=== PATIENT | male | born 1970 | race Two or more races ===

== ENCOUNTER 2019-07-27 12:22 | Emergency (ER) | payer SELFPAY ==
[2019-07-27 12:41] VITALS: TEMP 98.1; BMI 27.3
--- NOTE | 2019-07-27 13:39 | PDOC ---
History of Present Illness - General Chief Complaint: Pain Stated Complaint: LIVER PAIN Time Seen by Provider: 07/27/19 13:18 - History of Present Illness Initial Comments: Mr. Castañeda is a 49 y/o male with PMH of HTN, stroke, Hep C with residual deficits, presenting today with LUQ abdominal pain that has been going on for the past year. He recently moved from [place] to the [facility] permanently 3 weeks ago. Had a PCP and liver specialist in [place]. Had US of abdomen done in [place], but does not have results. Reports that he has had jaundice and pruritus over the past year. Reports nausea but denies vomiting. Reports that the pain is left sided and radiates around the side, and worsens with eating. Denies fever, chills, cough. Denies diarrhea/constipation/blood in the stool. Denies chest pain, or shortness of breath. Reports occasional lightheadedness. History limited 2/2 language barrier and unavailability of medical records. Past History - Past Medical History Allergies/Adverse Reactions: Allergies Allergy/AdvReac Type Severity Reaction Status Date / Time No Known Allergies Allergy Verified 07/27/19 12:41 - Suicide/Smoking/Psychosocial Hx Smoking History: Never smoked Hx Alcohol Use: No Drug/Substance Use Hx: No Review of Systems - Review of Systems Comments:: ROS GENERAL/CONSTITUTIONAL: No fever or chills. No weakness._ HEAD, EYES, EARS, NOSE AND THROAT: No change in vision. No change in hearing. No sore throat._ CARDIOVASCULAR: No chest pain or shortness of breath_ RESPIRATORY: Denies cough, hemoptysis_ GASTROINTESTINAL: Reports nausea. Denies vomiting, diarrhea or constipation. Reports left sided abdominal pain. GENITOURINARY: No dysuria, frequency, or change in urination._ MUSCULOSKELETAL: No joint or muscle swelling or pain. No neck or back pain._ SKIN: No rash. NEUROLOGIC: No headache, vertigo, loss of consciousness, or change in strength/ sensation. Reports lightheadedness. ENDOCRINE: No increased thirst. No abnormal weight change_ HEMATOLOGIC/LYMPHATIC: No anemia, easy bleeding, or history of blood clots._ ALLERGIC/IMMUNOLOGIC: No hives. *Physical Exam - Vital Signs Last Vital Signs Temp Pulse Resp BP Pulse Ox 98.1 F 83 19 137/80 99 07/27/19 12:36 07/27/19 12:36 07/27/19 12:36 07/27/19 12:36 07/27/19 12:36 - Physical Exam Comments: GENERAL: Awake, alert, and oriented to person/place/time, in no acute distress. HEAD: No signs of trauma, normocephalic, atraumatic _ EYES: PERRLA, EOMI, sclera anicteric, conjunctiva clear. ENT: Hearing grossly normal, nares patent, oropharynx clear without exudates. No uvular deviation. Moist mucosa_ NECK: Normal ROM, supple, no lymphadenopathy, JVD, or masses_ LUNGS: No distress, speaks in full sentences, clear to auscultation bilaterally _ HEART: Regular rate and rhythm, normal S1 and S2, no murmurs appreciated, peripheral pulses normal and equal bilaterally._ ABDOMEN: Soft, tenderness to palpation LUQ and LLQ. No guarding, no rebound. No masses. EXTREMITIES: Normal inspection, Normal range of motion, no edema. No clubbing or cyanosis. NEUROLOGICAL: Cranial nerves II through XII grossly intact. Normal speech, normal gait, no focal sensorimotor deficits _ SKIN: Warm, Dry, normal turgor, no rashes or lesions noted. ED Treatment Course - LABORATORY CBC & Chemistry Diagram: 07/27/19 14:42 07/27/19 14:42 Medical Decision Making - Medical Decision Making 07/27/19 13:45 49M with PMH Hep C and cirrhosis, presenting today with 1 year of LUQ LLQ abdominal pain over the past year. Reports weight loss over the past year. Worse with eating. No vomiting or blood in the stool. Obtain CT abd/pelv, CBC, CMP, coags, lipase. 07/27/19 1500 LFTs and coags elevated. This is c/w liver disease. 07/27/19 18:30 CT abdomen/pelvis shows non-obstructing renal stones, gallstones, and findings of cirrhotic liver. No liver masses appreciated. As there is no reason for admission, we will plan to d/c the patient home with close follow up with Dr. Barragan's clinic for primary care. Discussed this with the patient who verbalized understanding and agreement. *DC/Admit/Observation/Transfer Diagnosis at time of Disposition: Abdominal pain Qualifiers: Abdominal location: left upper quadrant Qualified Code(s): R10.12 - Left upper quadrant pain - Discharge Dispostion Disposition: HOME Condition at time of disposition: Stable Decision to Admit order: No - Referrals - Patient Instructions Printed Discharge Instructions: DI for Cirrhosis Additional Instructions: Please make an appointment with Dr. Barragan's office to establish care with a primary care physician. If you experience any new, worsening, or concerning symptoms, including fever, severe abdominal pain, blood in the vomit or stool, chest pain, shortness of breath, or any other concerns, please return to the emergency department. - Post Discharge Activity
[2019-07-27] MEDS ORDERED: SODIUM CHLORIDE 0.9% 500 ML INFUS.BAG IV ONE (13:50)
--- NOTE | 2019-07-27 15:06 | PDOC ---
Documentation entered by Isma Mahajan SCRIBE, acting as scribe for Liliya Hernandez MD. Liliya Hernandez MD: This documentation has been prepared by the Keyshawn gonzalez Xhesika, SCRIBE, under my direction and personally reviewed by me in its entirety. I confirm that the documentation accurately reflects all work, treatment, procedures, and medical decision making performed by me. Attending Attestation - Resident Resident Name: MacarioAguilar - ED Attending Attestation I have performed the following: I have examined & evaluated the patient, The case was reviewed & discussed with the resident, I agree w/resident's findings & plan, Exceptions are as noted - HPI HPI: 07/27/19 15:04 The patient is a 49 year old male with a significant PMH of HTN, Stroke, and Hep C with residual deficits who presents to the emergency department with worsening L upper and lower abdominal pain. Patient is a poor historian due to language barrier. Patient notes he moved from [place] 3 weeks ago and does not have a PCP. Patient states his pain radiates around his L side, is associated with decreased PO, nausea and is worsened with eating. Patient states he has lost 30 pounds over the past couple of months and has been jaundice. Patient notes he had a US in [place] that was abnormal but does not know the results. The patient denies chest pain, shortness of breath, headache and dizziness. Denies fever, chills, cough, vomiting, diarrhea and constipation. Denies dysuria , frequency, urgency and hematuria. Allergies: NKDA - Physicial Exam PE: GENERAL: Awake, alert, and fully oriented, in no acute distress. Appears chronically ill. HEAD: No signs of trauma EYES: PERRLA, EOMI, conjunctiva clear. +Scleral icterus ENT: Auricles normal inspection, hearing grossly normal, nares patent, oropharynx clear without exudates. Moist mucosa NECK: Normal ROM, supple, no lymphadenopathy, JVD, or masses LUNGS: Breath sounds equal, clear to auscultation bilaterally. No wheezes, and no crackles HEART: Regular rate and rhythm, normal S1 and S2, no murmurs, rubs or gallops ABDOMEN: Soft, nontender, normoactive bowel sounds. No guarding, no rebound. No masses EXTREMITIES: Normal range of motion, no edema. No clubbing or cyanosis. No cords, erythema, or tenderness NEUROLOGICAL: Cranial nerves II through XII grossly intact. Normal speech, normal gait. Motor and sensation intact SKIN: Warm, dry, normal turgor, no rashes or lesions noted. +Jaundice - Medical Decision Making 07/27/19 15:02 Pt with history of HCV, now with significant weight loss, nausea, poor PO intake , jaundice. Unknown imaging results from [place], but they were reportedly abnormal. Will obtain labs and plan for CT a/p to r/o liver mass.
[2019-07-27 15:20] LABS: BASO % 0.6 % (0-2.0); EOS % 2.3 % (0-4.5); HEMATOCRIT 36.2 % (35.4-49); HEMOGLOBIN 12.5 GM/dL (11.7-16.9); LYMPH % 42.3 % (8-40); MCH 36.3 pg (25.7-33.7); MCHC 34.7 g/dl (32.0-35.9); MEAN CELL VOLUME 104.8 fl (80-96); MEAN PLT VOLUME 9.6 fl (7.5-11.1); MONO % 10.4 % (3.8-10.2); NEUT % 44.4 % (42.8-82.8); PLATELET COUNT 78 K/MM3 (134-434); RBC 3.45 M/mm3 (4.00-5.60); RDW 13.9 % (11.9-15.9); WHITE BLOOD COUNT 6.5 K/mm3 (4.0-10.0)
[2019-07-27 15:36] LABS: INR 1.18 (0.83-1.09); PROTHROMBIN TIME (PATIENT) 13.9 SEC (9.7-13.0)
[2019-07-27 15:37] LABS: ALBUMIN 3.2 g/dl (3.4-5.0); BILIRUBIN,TOTAL 3.2 mg/dL (0.2-1); CALCIUM 8.8 mg/dL (8.5-10.1); CREATININE 0.8 mg/dL (0.55-1.3); POTASSIUM 3.5 mmol/L (3.5-5.1)
[2019-07-27 15:39] LABS: ACTIVATED PTT 34.7 SECONDS (25.2-36.5)
[2019-07-27 19:09] VITALS: BP 99/51; PULSE 87
== END 2019-07-27 19:08 | disposition home or self-care (01) ==
LOC: JER 12:22 → EDBD 12:22 → JER 19:08
PROC: 3E0337Z Introduction of Electrolytic and Water Balance Substance into Peripheral Vein, Percutaneous Approach (ICD-10-PCS; principal; 2019-07-27)
DX: R10.12 Left upper quadrant pain (principal); R63.4 Abnormal weight loss; Z68.27 Body mass index [BMI] 27.0-27.9, adult; I10 Essential (primary) hypertension; B18.2 Chronic viral hepatitis C; Z86.73 Personal history of transient ischemic attack (TIA), and cerebral infarction without residual deficits
CPT/HCPCS: 36415; 74177-TC; 80053; 80074; 83690; 85025; 85610; 85730; 99283-25

== ENCOUNTER 2019-08-11 14:59 | Inpatient (IN) | payer OTHER ==
--- NOTE | 2019-08-11 15:07 | PDOC ---
Rapid Medical Evaluation Time Seen by Provider: 08/11/19 15:04 Medical Evaluation: Allergies Allergy/AdvReac Type Severity Reaction Status Date / Time No Known Allergies Allergy Verified 07/27/19 12:41 08/11/19 15:05 I have performed a brief in-person evaluation of this patient. The patient presents with a chief complaint of: sent from [facility] office for eval of elevated lft, hep c, hx cirrhosis, + gen abd pain Pertinent physical exam findings: hr 133, a febrile, no abd distention I have ordered the following: labs, urine The patient will proceed to the ED for further evaluation. 08/11/19 15:08 Discharge Disposition - Diagnosis Cirrhosis, Elevated LFTs Abdominal pain Qualifiers: Abdominal location: right lower quadrant Qualified Code(s): R10.31 - Right lower quadrant pain - Discharge Dispostion Condition at time of disposition: Stable - Referrals - Patient Instructions - Post Discharge Activity
--- NOTE | 2019-08-11 15:17 | PDOC ---
History of Present Illness - General Chief Complaint: Pain, Acute Stated Complaint: SENT BY PCP Time Seen by Provider: 08/11/19 15:04 History Source: Patient Exam Limitations: No Limitations - History of Present Illness Initial Comments: 08/11/19 16:01 Reagan Donald is a 49yM w PMHx hep C cirrhosis, cholelithiasis, and gallstones presenting w abdominal pain and elevated liver labs. He endorses constant epigastric, RUQ and RLQ pain for 1 year. Seen in [facility] ED 07/27, labs and imaging show hepatic cirrhosis, cholelithiasis, and nonobstructing renal calculus. Vomited several times 3 days ago, currently not nauseous. Also has intermittent jaundice and pruritis. Denies fever, headache, chest pain, urinary , bowel mvmt changes. Saw Dr. Lena Sloan primary care clinic for first time today, noted to have elevated bilirubin levels, referred to ED to be admitted. Past History - Past Medical History Allergies/Adverse Reactions: Allergies Allergy/AdvReac Type Severity Reaction Status Date / Time No Known Allergies Allergy Verified 08/11/19 15:07 Home Medications: Ambulatory Orders NK [No Known Home Medication] 08/11/19 CVA: Yes COPD: No HTN: Yes Liver Disease: Yes (HEP C) - Suicide/Smoking/Psychosocial Hx Smoking History: Never smoked Hx Alcohol Use: Yes (OCCASIONALLY) Drug/Substance Use Hx: No Review of Systems - Review of Systems Constitutional: No: Chills, Fever HEENTM: No: Eye Pain, Nose Pain, Throat Pain, Mouth Pain Respiratory: No: Cough, Shortness of Breath Cardiac (ROS): No: Chest Pain, Palpitations, Syncope, Chest Tightness ABD/GI: Yes: Nausea, Vomiting. No: Abdominal Distended, Constipated, Diarrhea : No: Burning, Dysuria, Discharge, Hematuria, Incontinence Musculoskeletal: No: Back Pain, Joint Pain, Muscle Pain, Muscle Weakness Integumentary: Yes: Change in Color (jaundice), Pruritus. No: Bruising, Flushing, Lesions, Lumps Neurological: No: Headache, Numbness, Seizure, Tingling, Tremors Psychiatric: No: Anxiety, Depression Endocrine: No: Excessive Sweating, Flushing, Intolerance to Cold, Intolerance to Heat Hematologic/Lymphatic: No: Anemia, Blood Clots, Easy Bleeding *Physical Exam - Vital Signs Last Vital Signs Temp Pulse Resp BP Pulse Ox 98.8 F 112 H 16 111/81 98 08/11/19 15:02 08/11/19 15:02 08/11/19 15:02 08/11/19 15:02 08/11/19 15:02 - Physical Exam General Appearance: Yes: Nourished, Appropriately Dressed. No: Apparent Distress HEENT: positive: EOMI, ESTEVAN, Normal Voice, Hearing Grossly Normal. negative: Scleral Icterus (R), Scleral Icterus (L), Nasal Congestion, Rhinorrhea Respiratory/Chest: positive: Lungs Clear, Normal Breath Sounds. negative: Chest Tender, Respiratory Distress, Crackles, Rales, Rhonchi, Stridor, Wheezing Cardiovascular: positive: Regular Rhythm, Regular Rate, S1, S2. negative: Edema , Murmur Gastrointestinal/Abdominal: positive: Normal Bowel Sounds, Tender (mild tenderness epigastric, RUQ, R inguinal region), Flat, Soft. negative: Organomegaly, Distended, Guarding, Rebound, Hernia, Mass Musculoskeletal: positive: Normal Inspection Extremity: positive: Normal Capillary Refill Integumentary: positive: Normal Color Neurologic: positive: Fully Oriented, Alert, Normal Mood/Affect, Normal Response , Responsive. negative: Sensory Deficit, Confused, Disoriented ED Treatment Course - LABORATORY CBC & Chemistry Diagram: 08/11/19 15:25 08/11/19 16:27 Medical Decision Making - Medical Decision Making 08/11/19 16:13 CBC CMP trop NH4 lipase UA CXR EKG 1L NS RUQ US showed cholelithiasis, hepatic cirrhosis without cholangitis elevated, unchanged bili 3.6, AST 120, ALT 80 UA shows 2+ bili, nitrate, blood, trace ketone w/o bacteria/WBC Reagan Donald is a 49yM w PMHx hep C cirrhosis, cholelithiasis, and gallstones presenting w abdominal pain and elevated liver labs. Pain likely due to cirrhosis seen on RUQ US, elevated LFTs. US also showed cholelithiasis without cholangitis. Not ACS w negative trop, negative trop. Given 1L NS Admit to hospitalist for cirrhosis, elevated LFTs, R sided abdominal pain, continued vomiting in setting of absent outpatient care. *DC/Admit/Observation/Transfer Diagnosis at time of Disposition: Elevated LFTs Abdominal pain Qualifiers: Abdominal location: right lower quadrant Qualified Code(s): R10.31 - Right lower quadrant pain Cirrhosis Qualifiers: Hepatic cirrhosis type: unspecified hepatic cirrhosis Ascites presence: without ascites Qualified Code(s): K74.60 - Unspecified cirrhosis of liver - Referrals - Patient Instructions - Post Discharge Activity
[2019-08-11] MEDS ORDERED: SODIUM CHLORIDE 0.9% 500 ML INFUS.BAG IV ONE (15:43)
[2019-08-11 15:52] LABS: INR 1.21 (0.83-1.09); PROTHROMBIN TIME (PATIENT) 14.3 SEC (9.7-13.0)
[2019-08-11 16:14] LABS: BASO % 0.7 % (0-2.0); EOS % 2.1 % (0-4.5); HEMATOCRIT 35.8 % (35.4-49); HEMOGLOBIN 12.1 GM/dL (11.7-16.9); LYMPH % 37.4 % (8-40); MCH 35.9 pg (25.7-33.7); MCHC 33.7 g/dl (32.0-35.9); MEAN CELL VOLUME 106.6 fl (80-96); MEAN PLT VOLUME 10.4 fl (7.5-11.1); MONO % 15.2 % (3.8-10.2); NEUT % 44.6 % (42.8-82.8); PLATELET COUNT 90 K/MM3 (134-434); RBC 3.36 M/mm3 (4.00-5.60); RDW 13.8 % (11.9-15.9); WHITE BLOOD COUNT 6.8 K/mm3 (4.0-10.0)
--- NOTE | 2019-08-11 16:24 | PDOC ---
Attending Attestation - Resident Resident Name: Emmanuel Barrientos - ED Attending Attestation I have performed the following: I have examined & evaluated the patient, The case was reviewed & discussed with the resident, I agree w/resident's findings & plan - HPI HPI: 08/11/19 16:19 49y/o F h/o cirrhosis, known gallstones lost to f/u locally presents from [facility] clinic with persistent sxs of intermittent abd pain, anorexia, vomiting. Pt seen in ED, elevated LFTs so referred to clinic but pt seen today with inability to tolerate PO and progressive decline, so sent to ED. no f/c, + wt loss. - Physicial Exam PE: 08/11/19 16:21 vss, afebrile, tachy at triage but 90 at rest on my exam + scleral icterus, op clear s1s2 rrr, ctab soft/nd. + strong's on exam, no rebound. no cvat. 2-3+ pitting edema b/l no bruising - Medical Decision Making 08/11/19 16:22 49y/o M known cirrhosis/gallstones with progressive decline in setting of subacute GI complaints, here with jaundice/dehydration with weight loss. ? progression of cirrhosis, r/o biliary colic/obstruction. labs, ua ruq u/s ekg admit
[2019-08-11 16:55] LABS: ALBUMIN 3.1 g/dl (3.4-5.0); ALK PHOS 124 U/L (45-117); ANION GAP 11 MMOL/L (8-16); BILIRUBIN,TOTAL 3.6 mg/dL (0.2-1); CALCIUM 8.9 mg/dL (8.5-10.1); CHLORIDE 107 mmol/L (98-107); CO2 25 mmol/L (21-32); CREATININE 0.8 mg/dL (0.55-1.3); GLUCOSE,RANDOM 90 mg/dL (74-106); LIPASE 268 U/L (73-393); MAGNESIUM 1.9 mg/dL (1.8-2.4); POTASSIUM 4.2 mmol/L (3.5-5.1); SGOT/AST 125 U/L (15-37); SGPT/ALT 88 U/L (13-61); SODIUM 143 mmol/L (136-145); TOT PROT 6.8 g/dl (6.4-8.2)
[2019-08-11 17:01] LABS: EPI CELLS 0.5 /HPF (0-5/HPF); HYALINE CASTS 1 /lpf (0-8); PH,URINE 5.5 (5.0-8.0); URINE APPEARANCE CLEAR; URINE BACTERIA 1.9 /hpf (NEGATIVE); URINE BILIRUBIN 2+ (NEGATIVE); URINE COLOR DK YELLOW; URINE GLUCOSE (UA) NEGATIVE (NEGATIVE); URINE KETONE TRACE (NEGATIVE); URINE LEUK ESTERASE TRACE (NEGATIVE); URINE NITRITE POSITIVE (NEGATIVE); URINE PROTEIN NEGATIVE (NEGATIVE); URINE RBC 5 /hpf (0-4); URINE WBC 1 /hpf (0-5)
[2019-08-11 17:10] LABS: ALBUMIN 3.1 g/dl (3.4-5.0); BILIRUBIN,TOTAL 3.6 mg/dL (0.2-1); BLOOD UREA NITROGEN 13.7 mg/dL (7-18); CREATININE 0.8 mg/dL (0.55-1.3); POTASSIUM 4.5 mmol/L (3.5-5.1); TOT PROT 6.8 g/dl (6.4-8.2)
[2019-08-11 19:18] LABS: ANISOCYTOSIS 1+; MACROCYTOSIS 2+; PLATELET ESTIMATE DECREASED
--- NOTE | 2019-08-12 02:19 | HP ---
CHIEF COMPLAINT: RUQ and RLQ abdominal pain for the past 2-3 months, with weight loss, pruritis, jaundice, and loss of appetite for the past 1 year PCP: PCP is in [place], [place] the [place] 3 [place] ago. 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 He presnted to the ER from home with complaints of RUQ and RLQ abdominal pain for the past 2-3 months, with weight loss, pruritis, jaundice, and loss of appetite for the past 1 year. He first noticed pruritis and yellow discoloration of his eyes and skin approximately a year ago, followed by a weight loss of 30 pounds in the last 4 months of 2018. He visited his doctor in [place] earlier this year, and states that he was told that is liver was not functioning properly. His symptoms gradually progressed until 2-3 months ago, when he developed RUQ and RLQ abdominal pain, sudden in onset, 5/10 in intensity, dull in quality, constant in nature, non-radiating, aggravated by bending down, and with no alleviating factors. The pain was associated with loose stools, but no change in the frequency of his bowel movements. It is also associated with dizziness, SOB (able to walk 10 minutes), paliptations, nausea, occasional vomiting (4 times over the past year, usually after eating), dysuria (intermittent over the past 2 years, not currently an issue), and urinary urgency. He visited his physician again, and was told that his liver was damaged. He was also found to have elevated blood pressure, and was prescribed Atenolol (dosage not listed on prescription form [place]), temazepam, Claritin (for the pruritis), and Citalopram. [place] then [place] the [place], and presented to the [facility] ER on 07/27, where a CT was done and he was asked to F/U outpatient. CT showed hepatic cirrhosis, cholelithiasis, and non-obstructing renal calculus. He visited Dr. Lena Sloan today, and was referred to the ER to be admitted. In addition to his previous symptoms, he states that he vomited once on Saturday, 10 minutes after eating. He was unable to notice the color because it was dark, but states that the vomitus was watery. ER course was notable for: (1) Hep C Ab POSITIVE, TBili 3.6, AST 128, ALT 89, Albumin 3.1 (2) US RUQ: Chlelithiasis, borderline GB thickening, no right hydronephrosis (3) CT AP (07/27): Cirrhosis, non obstructive 3mm L Renal calculus, cholelithiasis Recent Travel: Arrived from [place] 3 weeks ago PAST MEDICAL HISTORY: HTN, Cirrhosis PAST SURGICAL HISTORY: None Social History: Has not worked for the past 15 months due to symptoms. Lives with sister in law and . States he is sexually active only with is Smoking: denies Alcohol: Has been drinking fr 30 years, used to drink 4-5 beers a few times a week, now down to 2-3 beers. Only drinks beer Drugs: Denies IV drug abuse reported Family History: No hx of CLD Allergies No Known Allergies Allergy (Verified 08/11/19 15:07) HOME MEDICATIONS: Home Medications Medication Instructions Recorded NK [No Known Home Medication] 08/11/19 REVIEW OF SYSTEMS CONSTITUTIONAL: weight loss Absent: fever, chills, diaphoresis, generalized weakness, malaise, loss of appetite, weight change HEENT: Absent: rhinorrhea, nasal congestion, throat pain, throat swelling, difficulty swallowing, mouth swelling, ear pain, eye pain, visual changes CARDIOVASCULAR: Absent: chest pain, syncope, palpitations, irregular heart rate, lightheadedness , peripheral edema RESPIRATORY: Absent: cough, shortness of breath, dyspnea with exertion, orthopnea, wheezing, stridor, hemoptysis GASTROINTESTINAL: abdominal pain, vomiting, nausea, watery stools Absent: abdominal pain, abdominal distension, nausea, vomiting, diarrhea, constipation, melena, hematochezia GENITOURINARY: Absent: dysuria, frequency, urgency, hesitancy, hematuria, flank pain, genital pain MUSCULOSKELETAL: Absent: myalgia, arthralgia, joint swelling, back pain, neck pain SKIN: pruritis Absent: rash, itching, pallor HEMATOLOGIC/IMMUNOLOGIC: Absent: easy bleeding, easy bruising, lymphadenopathy, frequent infections ENDOCRINE: Absent: unexplained weight gain, unexplained weight loss, heat intolerance, cold intolerance NEUROLOGIC: Absent: headache, focal weakness or paresthesias, dizziness, unsteady gait, seizure, mental status changes, bladder or bowel incontinence PSYCHIATRIC: Absent: anxiety, depression, suicidal or homicidal ideation, hallucinations. PHYSICAL EXAMINATION Vital Signs - 24 hr 08/11/19 08/11/19 08/11/19 15:02 18:01 19:17 Temperature 98.8 F 98.1 F 98.0 F Pulse Rate 112 H 102 H Pulse Rate [ 91 H Right] Respiratory 16 20 Rate Blood Pressure 111/81 132/83 Blood Pressure 136/78 [Right Arm] O2 Sat by Pulse 98 99 Oximetry (%) 08/11/19 08/12/19 08/12/19 20:41 00:14 00:35 Temperature 98.3 F Pulse Rate Pulse Rate [ 89 Right] Respiratory 17 Rate Blood Pressure Blood Pressure 129/78 [Right Arm] O2 Sat by Pulse 98 99 99 Oximetry (%) GENERAL: Awake, alert, and fully oriented, in no acute distress. HEAD: Normal with no signs of trauma. EYES: Pupils equal, round and reactive to light, icteric sclera EARS, NOSE, THROAT: Ears normal, nares patent, oropharynx clear without exudates. Moist mucous membranes. NECK: Normal range of motion, supple without lymphadenopathy, JVD, or masses. LUNGS: Breath sounds equal, clear to auscultation bilaterally. No wheezes, and no crackles. No accessory muscle use. HEART: Elevated HR, regular rhythm ABDOMEN: Soft, mild RUQ and RLQ tenderness, not distended, normoactive bowel sounds, no hepatomegaly, Morin negative MUSCULOSKELETAL: Normal range of motion at all joints. No bony deformities or tenderness. No CVA tenderness. UPPER EXTREMITIES: 2+ pulses, warm, well-perfused. No cyanosis. No clubbing. No peripheral edema. LOWER EXTREMITIES: 2+ pulses, warm, well-perfused. No calf tenderness. No peripheral edema. NEUROLOGICAL: Cranial nerves II-XII intact. Normal speech. Normal gait. PSYCHIATRIC: Cooperative. Good eye contact. Appropriate mood and affect. SKIN: Pruritic, erythematous lesion on lower extremities B/L Laboratory Results - last 24 hr 08/11/19 08/11/19 08/11/19 15:15 15:25 15:25 WBC 6.8 RBC 3.36 L Hgb 12.1 Hct 35.8 MCV 106.6 H MCH 35.9 H MCHC 33.7 RDW 13.8 Plt Count 90 L MPV 10.4 Absolute Neuts (auto) 3.0 Neutrophils % 44.6 Lymphocytes % 37.4 Monocytes % 15.2 H Eosinophils % 2.1 Basophils % 0.7 Nucleated RBC % 0 Platelet Estimate Decreased Polychromasia 1+ Anisocytosis 1+ Microcytosis 1+ Macrocytosis 2+ PT with INR 14.30 H INR 1.21 H Sodium 143 Potassium 4.2 Chloride 107 Carbon Dioxide 25 Anion Gap 11 BUN 13.0 Creatinine 0.8 Est GFR (CKD-EPI)AfAm 120.72 Est GFR (CKD-EPI)NonAf 104.16 Random Glucose 90 Calcium 8.9 Magnesium 1.9 Total Bilirubin 3.6 H AST 125 H ALT 88 H Alkaline Phosphatase 124 H Ammonia Creatine Kinase 54 Troponin I < 0.02 Total Protein 6.8 Albumin 3.1 L Lipase 268 Urine Color Urine Appearance Urine pH Ur Specific Hull Urine Protein Urine Glucose (UA) Urine Ketones Urine Blood Urine Nitrite Urine Bilirubin Urine Urobilinogen Ur Leukocyte Esterase Urine WBC (Auto) Urine RBC (Auto) Urine Casts (Auto) U Epithel Cells (Auto) Urine Bacteria (Auto) 08/11/19 09 09 16:27 16:27 16:27 WBC RBC Hgb Hct MCV MCH MCHC RDW Plt Count MPV Absolute Neuts (auto) Neutrophils % Lymphocytes % Monocytes % Eosinophils % Basophils % Nucleated RBC % Platelet Estimate Polychromasia Anisocytosis Microcytosis Macrocytosis PT with INR INR Sodium 144 Potassium 4.5 Chloride 107 Carbon Dioxide 28 Anion Gap 9 BUN 13.7 Creatinine 0.8 Est GFR (CKD-EPI)AfAm 120.72 Est GFR (CKD-EPI)NonAf 104.16 Random Glucose 93 Calcium 9.0 Magnesium Total Bilirubin 3.6 H AST 128 H ALT 89 H Alkaline Phosphatase 117 Ammonia 23.50 Creatine Kinase Troponin I Total Protein 6.8 Albumin 3.1 L Lipase Urine Color Dk yellow Urine Appearance Clear Urine pH 5.5 Ur Specific Hull 1.034 Urine Protein Negative Urine Glucose (UA) Negative Urine Ketones Trace H Urine Blood 1+ H Urine Nitrite Positive H Urine Bilirubin 2+ H Urine Urobilinogen 1.0 Ur Leukocyte Esterase Trace Urine WBC (Auto) 1 Urine RBC (Auto) 5 Urine Casts (Auto) 1 U Epithel Cells (Auto) 0.5 Urine Bacteria (Auto) 1.9 ASSESSMENT/PLAN: 49 year old male with past medical history significant for HTN and cirrhosis, presented with RUQ and RLQ abdominal pain for the past 2-3 months, with weight loss, pruritis, jaundice, and loss of appetite for the past 1 year. #Cirrhosis 2/2 Hep C infection with possible underlying alcoholic hepatitis - Hep C ab positive - Quant RNA - MELD score 13 - Ibuprofen for pain (avoid Tylenol due to hepatic damage) - GI consulted for varices screening - Hep B serologies ordered - HIV serology ordered - trend LFTs #Alcoholic Hepatitis suspected - Alcoholic hepatitis suggested due to hx of heavy alcohol consumption + elevated AST ALT ratio + elevated MCV - Echo ordered to rule out alcohol induced cardiomyopathy #Thrombocytopenia - Likely result of hepatic damage -> splenic sequestration - Trend Platelet count #Hypoalbuminemia 2/2 hepatic dysfunction #Pruritic lesions on lower extremities - Benadryl for prutitis #Hx of HTN - No proof of formal diagnosis, monitor closely #FEN - Na controlled diet #DVT PE - SCDs, avoid Heparin in setting of hepatic dysfunction Visit type - Emergency Visit Emergency Visit: Yes ED Registration Date: 08/11/19 Care time: The patient presented to the Emergency Department on the above date and was hospitalized for further evaluation of their emergent condition. - New Patient This patient is new to me today: Yes Date on this admission: 08/12/19 - Critical Care Critical Care patient: No ATTENDING PHYSICIAN STATEMENT I saw and evaluated the patient. I reviewed the resident's note and discussed the case with the resident. I agree with the resident's findings and plan as documented. SUBJECTIVE: OBJECTIVE: ASSESSMENT AND PLAN:
--- NOTE | 2019-08-12 04:31 | PN ---
Teaching Attending Note Name of Resident: Sandor St ATTENDING PHYSICIAN STATEMENT I saw and evaluated the patient. I reviewed the resident's note and discussed the case with the resident. I agree with the resident's findings and plan as documented. SUBJECTIVE: 49yM w PMHx cirrhosis, hep C , cholelithiasis c/o abdominal pain x several days. He said he was diagnosed with hep C and liver cirrhosis in [place] about one year ago. He also was found to have negative serologies for hep B at around the same time. Reports drinking heavily on weekends. Does not recall ever being tested for HIV. Denied any history of IV drug abuse. Is and states that his never was tested for hep C. OBJECTIVE: Last Vital Signs Temp Pulse Resp BP Pulse Ox 98.3 F 89 17 129/78 99 08/11/19 20:41 08/11/19 20:41 08/11/19 20:41 08/11/19 20:41 08/12/19 00:35 general- nad, aaox3 heent- sclera nonicteric, no oral thrush neck supple cv-s1+S2+rrr chest clear abd -no ascites, no tenderness to palpation ext - scaly, erythematous lesion on lower legs and feet b/l, pruritic Abnormal Lab Results 08/11/19 08/11/19 08/11/19 15:15 15:25 15:25 RBC 3.36 L MCV 106.6 H MCH 35.9 H Plt Count 90 L Monocytes % 15.2 H PT with INR 14.30 H INR 1.21 H Total Bilirubin 3.6 H AST 125 H ALT 88 H Alkaline Phosphatase 124 H Albumin 3.1 L Urine Ketones Urine Blood Urine Nitrite Urine Bilirubin 08/11/19 08/11/19 16:27 16:27 RBC MCV MCH Plt Count Monocytes % PT with INR INR Total Bilirubin 3.6 H AST 128 H ALT 89 H Alkaline Phosphatase Albumin 3.1 L Urine Ketones Trace H Urine Blood 1+ H Urine Nitrite Positive H Urine Bilirubin 2+ H ASSESSMENT AND PLAN: #Liver cirrhosis -likely secondary to underlying hep C. High AST to ALT ratio, high MCV makes me suspect significant etoh component as well. Do not suspect hepatic encephalopathy as mentating well. MELD score 13, Child class B. 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
[2019-08-12] MEDS ORDERED: LORATADINE 10 MG TABLET PO PRN (05:21)
[2019-08-12] MEDS ORDERED: LORazepam 1 MG TABLET PO PRN (05:23)
[2019-08-12] MEDS ORDERED: IBUPROFEN 400 MG TABLET (FP) PO PRN (05:24)
[2019-08-12] MEDS ORDERED: FLU VACCINE QUAD 60 MCG/0.5 ML (MDV 18-19) IM ONE (05:26)
[2019-08-12] MEDS ORDERED: HEPARIN NA (PORCINE) 5,000 UNITS/ML 1ML VIAL SQ SCH (06:00)
[2019-08-12] MEDS ORDERED: PNEUMOCOCCAL 23 VACCINE 0.5 ML VIAL IM ONE (08:00)
[2019-08-12 08:35] LABS: INR 1.19 (0.83-1.09); PROTHROMBIN TIME (PATIENT) 14.1 SEC (9.7-13.0)
[2019-08-12 08:38] LABS: ACTIVATED PTT 35.6 SECONDS (25.2-36.5)
[2019-08-12 08:50] LABS: BASO % 0.4 % (0-2.0); EOS % 3.4 % (0-4.5); HEMATOCRIT 33.1 % (35.4-49); HEMOGLOBIN 11.4 GM/dL (11.7-16.9); LYMPH % 37.9 % (8-40); MCH 36.5 pg (25.7-33.7); MCHC 34.5 g/dl (32.0-35.9); MEAN CELL VOLUME 105.9 fl (80-96); MEAN PLT VOLUME 10.3 fl (7.5-11.1); MONO % 10.7 % (3.8-10.2); NEUT % 47.6 % (42.8-82.8); PLATELET COUNT 84 K/MM3 (134-434); RBC 3.12 M/mm3 (4.00-5.60); RDW 13.7 % (11.9-15.9); WHITE BLOOD COUNT 5.9 K/mm3 (4.0-10.0)
[2019-08-12 08:52] LABS: ALBUMIN 2.8 g/dl (3.4-5.0); BILIRUBIN,TOTAL 3.3 mg/dL (0.2-1); BLOOD UREA NITROGEN 10.4 mg/dL (7-18); CALCIUM 8.5 mg/dL (8.5-10.1); CREATININE 0.7 mg/dL (0.55-1.3); PHOSPHOROUS 3.3 mg/dL (2.5-4.9); POTASSIUM 4.1 mmol/L (3.5-5.1); TOT PROT 6.2 g/dl (6.4-8.2)
--- NOTE | 2019-08-12 11:01 | EKG ---
Test Reason : Blood Pressure : / mmHG Vent. Rate : 092 BPM Atrial Rate : 092 BPM P-R Int : 136 ms QRS Dur : 088 ms QT Int : 344 ms P-R-T Axes : 000 033 029 degrees QTc Int : 425 ms NORMAL SINUS RHYTHM NORMAL ECG NO PREVIOUS ECGS AVAILABLE Confirmed by GELACIO PHILLIPS MD ([id number]) on 08/12/2019 11:01:08 AM Referred By: Confirmed By:GELACIO PHILLIPS MD
--- NOTE | 2019-08-12 12:08 | CON.GI ---
Consult Consult Specialty:: Gastroenterology Referred by:: Dr. Henao - History of Present Illness Chief Complaint: H/o hepatitis C History of Present Illness: 49yo male h/o HCV/cirrhosis, HTN presents with abdominal pain and elevated LFTs. 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 Pt reports being diagnosed with HCV in [place] in 07/2018 during routine blood work at physical exam. States was in process of evaluation in [place] however has not previously been treated for HCV. [place] 1 [place] ago and wants to establish care. Was seen in ED on 07/27/19 due to worsening right sided abdominal pain, underwent CT imaging revealing cirrhotic liver, without acute findings, and was advised outpt follow up. He was seen by Dr. Sloan in office yesterday however due to elevated LFTs was advised hospitalization. Currently pt reports feeling better overall, reports mild right upper and lower abdominal pain, denies nausea or vomiting. Tolerated breakfast this am without difficulty. Reports regular bm, denies melena or hematochezia. Reports some pruritus at hands and legs. Denies increase in abdominal girth. States legs are swollen at times (not currently). No prior EGD or colonoscopy. States he drinks few beers socially, last drink 7-8 days ago had 3 beers, though reports heavier drinking 20 years ago. Denies smoking or IVDA. No tattoos or blood transfusions. 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 Has not yet been established with GI or liver. [place] imaging revealing cholelithiasis ?thickened GB wall, and cirrhotic appearing liver. - History Source History Provided By: Patient, Medical Record Limitations to Obtaining History: No Limitations - Alcohol/Substance Use Hx Alcohol Use: Yes (OCCASIONALLY) - Smoking History Smoking history: Never smoked Have you smoked in the past 12 months: No If you are a former smoker, when did you quit?: 20 years ago Home Medications - Allergies Allergies/Adverse Reactions: Allergies Allergy/AdvReac Type Severity Reaction Status Date / Time No Known Allergies Allergy Verified 08/11/19 15:07 - Home Medications Home Medications: Ambulatory Orders Atenolol [Tenormin -] 25 mg PO DAILY 08/12/19 Citalopram Hydrobromide [Citalopram HBr] 20 mg PO DAILY 08/12/19 Loratadine [Claritin] 10 mg PO DAILY 08/12/19 Temazepam 30 mg PO DAILY 08/12/19 Review of Systems - Review of Systems Constitutional: reports: No Symptoms Cardiovascular: reports: No Symptoms Respiratory: reports: No Symptoms Gastrointestinal: reports: Abdominal Pain Genitourinary: reports: No Symptoms Musculoskeletal: reports: No Symptoms Physical Exam-GI Vital Signs: Vital Signs Temperature 98.7 F 08/12/19 06:00 Pulse Rate 84 08/12/19 06:00 Respiratory Rate 20 08/12/19 06:00 Blood Pressure 132/76 08/12/19 06:00 O2 Sat by Pulse Oximetry (%) 99 08/12/19 00:35 Constitutional: Yes: Well Nourished, No Distress, Calm Cardiovascular: Yes: WNL, Regular Rate and Rhythm Respiratory: Yes: WNL, Regular, CTA Bilaterally Gastrointestinal Inspection: Yes: WNL ...Palpate: Yes: Other (Abd soft, minimally tender on palpation in right mid abdomen, no rebound, guarding or rigidity, negative murphys sign) Edema: No Labs: CBC, BMP 08/12/19 07:15 08/12/19 07:15 INR, PTT INR 1.19 (0.83-1.09) H 08/12/19 07:15 Imaging - Results Cat Scan: Report Reviewed, Image Reviewed Ultrasound: Report Reviewed Problem List - Problems (1) Cirrhosis Assessment/Plan: 49 yo male h/o cirrhosis likely secondary to HCV, and possible ETOH component with intermittent right sided abdominal pain and elevated LFTs. No overt bleeding. Imaging suggestive of cirrhotic liver, no mass lesions seen. MELD 13. -Continue supportive measures, diet as tolerated -Recommend MRCP to further evaluate biliary tract though suspect elevated LFTs secondary to chronic liver disease, less likely obstructive process -Check HCV RNA and genotype -Check Hep B surface Ab to assess immunity status, if negative will need vaccination -Pt will require EGD for baseline variceal screening, can be considered prior to discharge or as outpt as he will also require colonoscopy for screening purposes -Strict etoh abstinence -Will need to establish outpatient GI/liver follow up upon discharge for ongoing management Code(s): K74.60 - UNSPECIFIED CIRRHOSIS OF LIVER Qualifiers: Hepatic cirrhosis type: unspecified hepatic cirrhosis Ascites presence: without ascites Qualified Code(s): K74.60 - Unspecified cirrhosis of liver (2) Abdominal pain Assessment/Plan: Possibly secondary to underlying liver disease/stretching of capsule, low suspicion for cholecystitis. Minimal pain currently and tolerating diet. Advised MRCP to further evaluate as noted above though suspect secondary to chronic liver disease. Code(s): R10.9 - UNSPECIFIED ABDOMINAL PAIN Qualifiers: Abdominal location: right lower quadrant Qualified Code(s): R10.31 - Right lower quadrant pain
--- NOTE | 2019-08-12 13:48 | ECHO ---
Name: TERENCE CASEY Exam:Adult Echocardiogram Study Date: 08/12/2019 09:27 AM Age: 49 yrs Height: 69 in Weight: 194 lb BSA: 2.0 m2 MMode/2D Measurements & Calculations IVSd: 0.83 cm Ao root diam: 2.7 cm LVIDd: 4.9 cm LA dimension: 3.4 cm LVIDs: 2.9 cm LVPWd: 1.1 cm LVPWs: 1.3 cm EDV(Teich): 114.6 ml ESV(Teich): 31.7 ml Doppler Measurements & Calculations MV E max balta: 68.1 cm/sec Ao V2 max: 144.5 cm/sec MV A max balta: 64.7 cm/sec Ao max P.4 mmHg MV E/A: 1.1 Ao V2 mean: 107.0 cm/sec MV dec time: 0.19 sec Ao mean P.1 mmHg Ao V2 VTI: 27.5 cm LV V1 max P.7 mmHg PA V2 max: 159.5 cm/sec LV V1 mean P.3 mmHg PA max P.2 mmHg LV V1 max: 108.1 cm/sec LV V1 mean: 67.2 cm/sec LV V1 VTI: 17.5 cm Med Peak E' Balta: 7.7 cm/sec Med E/e': 8.9 Lat Peak E' Balta: 11.0 cm/sec Lat E/e': 6.2 Procedure A two-dimensional transthoracic echocardiogram with color flow and Doppler was performed. Left Ventricle The left ventricular size, thickness and function are normal. The left ventricular ejection fraction is normal. Left Ventricular Filling pattern is normal for age. The left ventricular wall motion is trang l. Right Ventricle The right ventricle is normal in size and function. Atria Normal left and right atrial size and function. Mitral Valve There is trivial mitral valve thickening. There is no mitral valve stenosis. There is trace to mild m itral regurgitation. Tricuspid Valve The tricuspid valve is normal in structure and function. There is no tricuspid stenosis. There was insufficient TR detected to calculate RV systolic pressure. Aortic Valve The aortic valve is normal in structure and function. No hemodynamically significant valvular aortic stenosis. No aortic regurgitation is present. Pulmonic Valve The pulmonic valve is not well visualized. Great Vessels The aortic root is normal size. Pericardium/Pleura There is no pericardial effusion. Interpretation Summary The left ventricular size, thickness and function are normal The left ventricular ejection fraction is normal. The left ventricular wall motion is normal. There is trace to mild mitral regurgitation. There was insufficient TR detected to calculate RV systolic pressure. Left Ventricular Filling pattern is normal for age. MD Nick Medina 08/12/2019 01:48 PM
--- NOTE | 2019-08-12 13:49 | PN ---
Physical Exam: SUBJECTIVE: 49 y/o male with PMH HTN and Hep C with cirrhosis, whom presented with RUQ and RLQ abdominal pain: 30 lbs weight loss/2-3 mo, pruritis + jaundice , and decreasing appetite. Abd pain on presentation was RIGHT sided abdominal pain, sudden in onset, dull in quality, constant in nature, non-radiating, assoc loose stools and 1x nbnb food-containing vomit, aggravated by bending down , and with no alleviating factors, and 5/10. Pt recently moved from [place] to the [facility]. Pt seen and examined at bedside. He has mild RLQ pain this morning. He denies NVFD. OBJECTIVE: Vital Signs Period Temp Pulse Resp BP Sys/Abernathy Pulse Ox Last 24 Hr 98.0 F-98.8 F 84-112 16-20 111-136/64-83 98-99 GENERAL: AOx3, in no acute distress, Libyan speaking only HEAD: NCAT EYES: BETHEL, EOMI, conjunctiva clear. ENT: Ears normal, nares patent, oropharynx clear without exudates. Moist mucous membranes. NECK: Normal range of motion, supple without lymphadenopathy, JVD, or masses. LUNGS: CTAB. No wheezes, and no crackles. No accessory muscle use. HEART: RRR s1 s2 ABDOMEN: Tender to palpation in RUQ. Hepatomegally. No splenomegally appreciated. Soft, BS present in all 4 quadrants, non-distended, no JVD, MUSCULOSKELETAL: No bony deformities or tenderness. No CVA tenderness. UPPER EXTREMITIES: 2+ pulses, warm, well-perfused. No cyanosis. No clubbing. No peripheral edema. LOWER EXTREMITIES: 2+ pulses, warm, well-perfused. No calf tenderness. No peripheral edema. NEUROLOGICAL: Cranial nerves II-XII intact. Normal speech. Gait not appreciated. PSYCHIATRIC: Cooperative. Good eye contact. Appropriate mood and affect. SKIN: Rash on LEs. Warm, dry, normal turgor, no lesions noted, normal capillary refill. Laboratory Results - last 24 hr Hep C Ab POSITIVE, TBili 3.6, AST 128, ALT 89, Albumin 3.1 08/11/19 08/11/19 08/11/19 15:15 15:25 15:25 WBC 6.8 RBC 3.36 L Hgb 12.1 Hct 35.8 MCV 106.6 H MCH 35.9 H MCHC 33.7 RDW 13.8 Plt Count 90 L MPV 10.4 Absolute Neuts (auto) 3.0 Neutrophils % 44.6 Lymphocytes % 37.4 Monocytes % 15.2 H Eosinophils % 2.1 Basophils % 0.7 Nucleated RBC % 0 Platelet Estimate Decreased Polychromasia 1+ Anisocytosis 1+ Microcytosis 1+ Macrocytosis 2+ PT with INR 14.30 H INR 1.21 H PTT (Actin FS) Sodium 143 Potassium 4.2 Chloride 107 Carbon Dioxide 25 Anion Gap 11 BUN 13.0 Creatinine 0.8 Est GFR (CKD-EPI)AfAm 120.72 Est GFR (CKD-EPI)NonAf 104.16 Random Glucose 90 Calcium 8.9 Phosphorus Magnesium 1.9 Total Bilirubin 3.6 H AST 125 H ALT 88 H Alkaline Phosphatase 124 H Ammonia Creatine Kinase 54 Troponin I < 0.02 Total Protein 6.8 Albumin 3.1 L Lipase 268 Urine Color Urine Appearance Urine pH Ur Specific Hendricks Urine Protein Urine Glucose (UA) Urine Ketones Urine Blood Urine Nitrite Urine Bilirubin Urine Urobilinogen Ur Leukocyte Esterase Urine WBC (Auto) Urine RBC (Auto) Urine Casts (Auto) U Epithel Cells (Auto) Urine Bacteria (Auto) 08/11/19 0908/11/19 16:27 16:27 16:27 WBC RBC Hgb Hct MCV MCH MCHC RDW Plt Count MPV Absolute Neuts (auto) Neutrophils % Lymphocytes % Monocytes % Eosinophils % Basophils % Nucleated RBC % Platelet Estimate Polychromasia Anisocytosis Microcytosis Macrocytosis PT with INR INR PTT (Actin FS) Sodium 144 Potassium 4.5 Chloride 107 Carbon Dioxide 28 Anion Gap 9 BUN 13.7 Creatinine 0.8 Est GFR (CKD-EPI)AfAm 120.72 Est GFR (CKD-EPI)NonAf 104.16 Random Glucose 93 Calcium 9.0 Phosphorus Magnesium Total Bilirubin 3.6 H AST 128 H ALT 89 H Alkaline Phosphatase 117 Ammonia 23.50 Creatine Kinase Troponin I Total Protein 6.8 Albumin 3.1 L Lipase Urine Color Dk yellow Urine Appearance Clear Urine pH 5.5 Ur Specific Hendricks 1.034 Urine Protein Negative Urine Glucose (UA) Negative Urine Ketones Trace H Urine Blood 1+ H Urine Nitrite Positive H Urine Bilirubin 2+ H Urine Urobilinogen 1.0 Ur Leukocyte Esterase Trace Urine WBC (Auto) 1 Urine RBC (Auto) 5 Urine Casts (Auto) 1 U Epithel Cells (Auto) 0.5 Urine Bacteria (Auto) 1.9 08/12/19 08/12/19 08/12/19 07:15 07:15 07:15 WBC 5.9 RBC 3.12 L Hgb 11.4 L Hct 33.1 L MCV 105.9 H MCH 36.5 H MCHC 34.5 RDW 13.7 Plt Count 84 L MPV 10.3 Absolute Neuts (auto) 2.8 Neutrophils % 47.6 Lymphocytes % 37.9 Monocytes % 10.7 H Eosinophils % 3.4 Basophils % 0.4 Nucleated RBC % 0 Platelet Estimate Polychromasia Anisocytosis Microcytosis Macrocytosis PT with INR 14.10 H INR 1.19 H PTT (Actin FS) 35.6 Sodium 141 Potassium 4.1 Chloride 106 Carbon Dioxide 29 Anion Gap 6 L BUN 10.4 Creatinine 0.7 Est GFR (CKD-EPI)AfAm 127.53 Est GFR (CKD-EPI)NonAf 110.04 Random Glucose 82 Calcium 8.5 Phosphorus 3.3 Magnesium 2.0 Total Bilirubin 3.3 H AST 120 H ALT 83 H Alkaline Phosphatase 117 Ammonia Creatine Kinase Troponin I Total Protein 6.2 L Albumin 2.8 L Lipase Urine Color Urine Appearance Urine pH Ur Specific Hendricks Urine Protein Urine Glucose (UA) Urine Ketones Urine Blood Urine Nitrite Urine Bilirubin Urine Urobilinogen Ur Leukocyte Esterase Urine WBC (Auto) Urine RBC (Auto) Urine Casts (Auto) U Epithel Cells (Auto) Urine Bacteria (Auto) Active Medications Diphenhydramine HCl (Benadryl Injection -) 25 mg IVPUSH Q8H PRN PRN Reason: FOR ITCHING Ibuprofen (Motrin -) 400 mg PO Q6H PRN PRN Reason: PAIN LEVEL 6-10 Lorazepam (Ativan -) 0.5 mg PO Q6H EVELINA Stop: 08/15/19 23:01 Lorazepam (Ativan -) 0.5 mg PO Q4H PRN PRN Reason: Symptoms of Withdrawal Stop: 08/16/19 00:00 Lorazepam (Ativan -) 0.5 mg PO ONCE ONE Stop: 08/16/19 05:01 Lorazepam (Ativan -) 1 mg PO 0500,1100,1700,2300 EVELINA Stop: 08/14/19 23:01 Lorazepam (Ativan -) 1 mg PO Q4H PRN PRN Reason: Symptoms of Withdrawal Stop: 08/14/19 23:59 ASSESSMENT/PLAN: 49 y/o male with PMH HTN and Hep C with cirrhosis, whom presented with RUQ and RLQ abdominal pain. Pt sent to ED from Dr. Dr. Lena Sloan's office. # Hep C with liver cirrhosis - High AST to ALT ratio, high MCV makes me suspect significant etoh component - MELD score 13, Child class B. - Abdominal US: Cirrhosis, cholelithiasis, poss early cholecystitis. - GI consulted: > Cont. 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 necrolytic acral erythema - (+) DM, anemia H/H low 11.4/33.1 - MRCP pending - Serum glucagon # Hypoalbuminemia - Most likely 2/2 liver failure # Acute alcohol withdrawal - No current symptoms - Will monitor for withdrawal - Ativan PRN. # Depression - Cont. Citalopram - Pt has home med of temazepam 30 mg PO QD for insomnia # F/E/N - No standing fluids - Cont. to monitor electrolytes - Low sodium diet # DVT prophylaxis - SCD - Regular ambulation - No heparin Dario Howard MD Visit type - Emergency Visit Emergency Visit: No - New Patient This patient is new to me today: Yes Date on this admission: 08/12/19 - Critical Care Critical Care patient: No - Discharge Referral Referred to [facility] No ATTENDING PHYSICIAN STATEMENT I saw and evaluated the patient. I reviewed the resident's note and discussed the case with the resident. I agree with the resident's findings and plan as documented. SUBJECTIVE: OBJECTIVE: ASSESSMENT AND PLAN:
--- NOTE | 2019-08-12 18:18 | PN ---
Teaching Attending Note Name of Resident: Dario Howard ATTENDING PHYSICIAN STATEMENT I saw and evaluated the patient. I reviewed the resident's note and discussed the case with the resident. I agree with the resident's findings and plan as documented. SUBJECTIVE: Complains of RLQ abdominal pain. No nausea/vomiting. No hematemesis/ melena/hematochezia. OBJECTIVE: Afebrile, Hemodynamically Stable. Last Vital Signs Temp Pulse Resp BP Pulse Ox 98.2 F 94 H 20 122/79 99 08/12/19 16:35 08/12/19 16:35 08/12/19 16:35 08/12/19 16:35 08/12/19 09:00 HEENT - Atraumatic, Normocephalic Heart - S1, S2, RRR Lungs - clear to auscultation Abdomen - RLQ tenderness, soft, bowel sounds normal. Extremities - no edema, no calf tenderness. scaly rash LEs/feet. Neuro - AAO x 3. Tone/Power normal all 4 extremities. Laboratory Results - last 24 hr 08/11/19 08/12/19 08/12/19 15:25 07:15 07:15 WBC 5.9 RBC 3.12 L Hgb 11.4 L Hct 33.1 L MCV 105.9 H MCH 36.5 H MCHC 34.5 RDW 13.7 Plt Count 84 L MPV 10.3 Absolute Neuts (auto) 2.8 Neutrophils % 47.6 Lymphocytes % 37.9 Monocytes % 10.7 H Eosinophils % 3.4 Basophils % 0.4 Nucleated RBC % 0 Platelet Estimate Decreased Polychromasia 1+ Anisocytosis 1+ Microcytosis 1+ Macrocytosis 2+ PT with INR 14.10 H INR 1.19 H PTT (Actin FS) 35.6 Sodium Potassium Chloride Carbon Dioxide Anion Gap BUN Creatinine Est GFR (CKD-EPI)AfAm Est GFR (CKD-EPI)NonAf Random Glucose Calcium Phosphorus Magnesium Total Bilirubin AST ALT Alkaline Phosphatase Total Protein Albumin 08/12/19 07:15 WBC RBC Hgb Hct MCV MCH MCHC RDW Plt Count MPV Absolute Neuts (auto) Neutrophils % Lymphocytes % Monocytes % Eosinophils % Basophils % Nucleated RBC % Platelet Estimate Polychromasia Anisocytosis Microcytosis Macrocytosis PT with INR INR PTT (Actin FS) Sodium 141 Potassium 4.1 Chloride 106 Carbon Dioxide 29 Anion Gap 6 L BUN 10.4 Creatinine 0.7 Est GFR (CKD-EPI)AfAm 127.53 Est GFR (CKD-EPI)NonAf 110.04 Random Glucose 82 Calcium 8.5 Phosphorus 3.3 Magnesium 2.0 Total Bilirubin 3.3 H AST 120 H ALT 83 H Alkaline Phosphatase 117 Total Protein 6.2 L Albumin 2.8 L Current Medications Generic Name Dose Route Start Last Admin Trade Name Freq PRN Reason Stop Dose Admin Diphenhydramine HCl 25 mg 08/12/19 05:22 Benadryl Injection - IVPUSH Q8H PRN FOR ITCHING Ibuprofen 400 mg 08/12/19 05:24 Motrin - PO Q6H PRN PAIN LEVEL 6-10 Lorazepam 0.5 mg 08/15/19 05:00 Ativan - PO 08/15/19 23:01 Q6H EVELINA Lorazepam 0.5 mg 08/15/19 00:00 Ativan - PO 08/16/19 00:00 Q4H PRN Symptoms of Withdrawal Lorazepam 0.5 mg 08/16/19 05:00 Ativan - PO 08/16/19 05:01 ONCE ONE Lorazepam 1 mg 08/14/19 05:00 Ativan - PO 08/14/19 23:01 0500,1100,1700,2300 EVELINA Lorazepam 1 mg 08/12/19 05:23 Ativan - PO 08/14/19 23:59 Q4H PRN Symptoms of Withdrawal Home Medications Medication Instructions Recorded Atenolol [Tenormin -] 25 mg PO DAILY 08/12/19 Citalopram Hydrobromide 20 mg PO DAILY 08/12/19 [Citalopram HBr] Loratadine [Claritin] 10 mg PO DAILY 08/12/19 Temazepam 30 mg PO DAILY 08/12/19 ASSESSMENT AND PLAN: 49 year old male with history of Depression/Anxiety, HTN, Liver Cirrhosis, Alcohol excess, Hepatitis C, Cholelithiasis presents with abdominal pain, without nausea/vomiting/diarrhea/melena/hematochezia. 1. Liver Cirrhosis secondary to Hepatitis + Alcohol Abuse TBil 3.3, AST 120, ALT 83 MELD 13, Child Class B Abdominal US - cirrhosis, cholelithiasis, possible early cholecystitis. Afebrile, Hemodynamically stable, without leukocytosis. GI consulted for further work-up including initiation of treatment for Hepatitis C and scheduling of screening EGD/Colonoscopy MRCP requested by GI. 2. Macrocytosis likely sec to Cirrhosis/Alcohol excess Will request B12 and Folate levels. 3. Thrombocytopenia - sec to Cirrhosis. No bruising/bleeding. 4. Rash LEs - possible Necrolytic Acral Erythema 5. Acute Alcohol Withdrawal - will monitor for withdrawal. Ativan PRN. 6. Depression/Anxiety - continue Citalopram 7. HTN - continue Atenolol. DVT Px - SCDs. Heparin held due to Thrombocytopnia.
[2019-08-12] MEDS: ATENOLOL 25 MG TABLET (FP) PO SCH (18:30)
[2019-08-12] MEDS: CITALOPRAM HYDROBROMIDE 20 MG TABLET (FP) PO SCH (18:30)
[2019-08-13] MEDS: LORATADINE 10 MG TABLET PO SCH (09:46)
[2019-08-13] MEDS: CITALOPRAM HYDROBROMIDE 20 MG TABLET (FP) PO SCH (09:46)
[2019-08-13] MEDS: ATENOLOL 25 MG TABLET (FP) PO SCH (09:46)
[2019-08-13] MEDS: PANTOPRAZOLE 40 MG TABLET (FP) PO SCH (10:56)
--- NOTE | 2019-08-13 11:40 | PN.GI ---
GI Progress Note Subjective: No acute events Denies focal compplaints Awaiting MRCP result - Objective Vital Signs: Vital Signs Temperature 98.2 F 08/13/19 10:00 Pulse Rate 93 H 08/13/19 10:00 Respiratory Rate 20 08/13/19 10:00 Blood Pressure 134/69 08/13/19 10:00 O2 Sat by Pulse Oximetry (%) 99 08/12/19 21:00 Constitutional: Calm Eyes: Yes: Sclera Icterus (Mild) Cardiovascular: Yes: Regular Rate and Rhythm. No: Murmur Respiratory: Yes: CTA Bilaterally Gastrointestinal Inspection: No: Distention, Scars ...Auscultate: Yes: Normoactive Bowel Sounds ...Palpate: Yes: Hepatomegaly, Soft. No: Splenomegaly, Tenderness ...Percussion: No: Tympanitic Extremities: Yes: Other (scaly plaques on ankles and toes) Edema: No (No LE edema) Neurological: Yes: Alert. No: Asterix[facility] Labs: CBC, BMP 08/12/19 07:15 08/12/19 07:15 INR, PTT INR 1.19 (0.83-1.09) H 08/12/19 07:15 Problem List - Problems (1) Cirrhosis Assessment/Plan: CHC / alcoholic cirrhosis: MELD 13 Discussed with patient. Explained need for continued outpatient follow-up, need for complete alcohol cessation. Explained that continued alcohol consumption will help expedite further liver decompensation and eventual . Genotype and quantitation pending. Will need treatment if active viral replication noted. Needs q 6 month hepatis US to screen for HCC Discussed upper endoscopy to screen for varices with possible banding pending results of MRCP. Discussed potential risks of the procedure like but not limited to bleeding, perforation requiring surgery to repair, infection, sedation medication effects all of which could be potentially life threatening. He has agreed to the procedure. Plan for 08/14. NPO after midnight except meds. Awaiting MRCP result. Code(s): K74.60 - UNSPECIFIED CIRRHOSIS OF LIVER Qualifiers: Hepatic cirrhosis type: unspecified hepatic cirrhosis Ascites presence: without ascites Qualified Code(s): K74.60 - Unspecified cirrhosis of liver
[2019-08-13 12:34] VITALS: BMI 28.6
--- NOTE | 2019-08-13 13:02 | PN ---
Physical Exam: SUBJECTIVE: 49 y/o male with PMH HTN and Hep C with cirrhosis, whom presented with RUQ and RLQ abdominal pain: 30 lbs weight loss/2-3 mo, pruritis + jaundice , and decreasing appetite. Abd pain on presentation was RIGHT sided abdominal pain, sudden in onset, dull in quality, constant in nature, non-radiating, assoc loose stools and 1x nbnb food-containing vomit, aggravated by bending down , and with no alleviating factors, and 5/10. Pt recently moved from [place] to the [facility]. Pt seen and examined at bedside. He denies abd pain this morning. He denies NVFD. OBJECTIVE: Vital Signs Period Temp Pulse Resp BP Sys/Abernathy Pulse Ox Last 24 Hr 98.1 F-98.7 F 83-98 20-20 120-137/69-79 99-99 GENERAL: AOx3, in no acute distress, Taiwanese speaking only HEAD: NCAT EYES: BETHEL, EOMI, conjunctiva clear. ENT: Ears normal, nares patent, oropharynx clear without exudates. Moist mucous membranes. NECK: Normal range of motion, supple without lymphadenopathy, JVD, or masses. LUNGS: CTAB. No wheezes, and no crackles. No accessory muscle use. HEART: RRR s1 s2 ABDOMEN: Tender to palpation in RUQ. Hepatomegally. No splenomegally appreciated. Soft, BS present in all 4 quadrants, non-distended, no JVD, MUSCULOSKELETAL: No bony deformities or tenderness. No CVA tenderness. UPPER EXTREMITIES: 2+ pulses, warm, well-perfused. No cyanosis. No clubbing. No peripheral edema. LOWER EXTREMITIES: 2+ pulses, warm, well-perfused. No calf tenderness. No peripheral edema. NEUROLOGICAL: Cranial nerves II-XII intact. Normal speech. Gait not appreciated. PSYCHIATRIC: Cooperative. Good eye contact. Appropriate mood and affect. SKIN: Rash on LEs. Warm, dry, normal turgor, no lesions noted, normal capillary refill. Laboratory Results - last 24 hr 08/13/19 07:00 Vitamin B12 1327 H Serum Folate 20 H Active Medications Generic Name Dose Route Start Last Admin Trade Name Freq PRN Reason Stop Dose Admin Atenolol 25 mg 08/12/19 18:30 08/13/19 09:46 Tenormin - PO 25 mg DAILY EVELINA Administration Citalopram Hydrobromide 20 mg 08/12/19 18:30 08/13/19 09:46 Celexa - PO 20 mg DAILY EVELINA Administration Clotrimazole 1 applic 08/13/19 12:45 Lotrimin 1% Cream - TP BID EVELINA Diphenhydramine HCl 25 mg 08/12/19 05:22 Benadryl Injection - IVPUSH Q8H PRN FOR ITCHING Loratadine 10 mg 08/13/19 10:00 08/13/19 09:46 Claritin - PO 10 mg DAILY EVELINA Administration Lorazepam 0.5 mg 08/15/19 05:00 Ativan - PO 08/15/19 23:01 Q6H EVELINA Lorazepam 0.5 mg 08/15/19 00:00 Ativan - PO 08/16/19 00:00 Q4H PRN Symptoms of Withdrawal Lorazepam 0.5 mg 08/16/19 05:00 Ativan - PO 08/16/19 05:01 ONCE ONE Lorazepam 1 mg 08/14/19 05:00 Ativan - PO 08/14/19 23:01 0500,1100,1700,2300 EVELINA Lorazepam 1 mg 08/12/19 05:23 Ativan - PO 08/14/19 23:59 Q4H PRN Symptoms of Withdrawal Pantoprazole Sodium 40 mg 08/13/19 10:00 08/13/19 10:56 Protonix - PO 40 mg DAILY EVELINA Administration ASSESSMENT/PLAN: 49 y/o male with PMH HTN and Hep C with cirrhosis, whom presented with RUQ and RLQ abdominal pain. Pt sent to ED from Dr. Dr. Lena Sloan's office. # Hep C with liver cirrhosis - High AST to ALT ratio, high MCV makes me suspect significant etoh component - MELD score 13, Child class B. - Abdominal US: Cirrhosis, cholelithiasis, poss early cholecystitis. - GI consulted: > Cont. supportive measures > Pain likely biliary colic > If Hep B non-immune, provide immunization > Hep C treatment w f/u out pt > Out-pt colonoscopy > EGD: 3 columns of varices, no active bleeding, 2cm hiatal hernia > MRCP: Multiple gallstones w/ trace pericholecystic fluid. suspect findings of fluid secondary to portal hypertension and hypoalbuminemia. > Patient also given appt with gastroenterology at [facility] with Dr. 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 necrolytic acral erythema - (+) DM, anemia H/H low 11.4/33.1 - MRCP pending - Serum glucagon # Hypoalbuminemia - Most likely 2/2 liver failure # Acute alcohol withdrawal - No current symptoms - Will monitor for withdrawal - Ativan PRN. # Depression - Cont. Citalopram - Pt has home med of temazepam 30 mg PO QD for insomnia # F/E/N - No standing fluids - Cont. to monitor electrolytes - Low sodium diet # DVT prophylaxis - SCD - Regular ambulation - No heparin Dario Howard MD Visit type - Emergency Visit Emergency Visit: No - New Patient This patient is new to me today: No - Critical Care Critical Care patient: No - Discharge Referral Referred to [facility] No ATTENDING PHYSICIAN STATEMENT I saw and evaluated the patient. I reviewed the resident's note and discussed the case with the resident. I agree with the resident's findings and plan as documented. SUBJECTIVE: OBJECTIVE: ASSESSMENT AND PLAN:
[2019-08-13] MEDS: CLOTRIMAZOLE 1% CREAM 15 GM TUBE TP SCH ×2 (13:30→22:01)
--- NOTE | 2019-08-13 18:31 | PN ---
Teaching Attending Note Name of Resident: Dario Howard ATTENDING PHYSICIAN STATEMENT I saw and evaluated the patient. I reviewed the resident's note and discussed the case with the resident. I agree with the resident's findings and plan as documented. SUBJECTIVE: Complains of RLQ abdominal pain. No nausea/vomiting. No hematemesis/ melena/hematochezia. OBJECTIVE: Afebrile, Hemodynamically Stable. Last Vital Signs Temp Pulse Resp BP Pulse Ox 98.2 F 77 20 120/67 99 08/13/19 16:30 08/13/19 16:30 08/13/19 16:30 08/13/19 16:30 08/13/19 09:00 HEENT - Atraumatic, Normocephalic Heart - S1, S2, RRR Lungs - clear to auscultation Abdomen - RLQ tenderness, soft, bowel sounds normal. Extremities - no edema, no calf tenderness. scaly erythematous rash LEs/feet. Neuro - AAO x 3. Tone/Power normal all 4 extremities. Laboratory Results - last 24 hr 08/13/19 08/13/19 08/13/19 07:00 12:25 13:55 Vitamin B12 1327 H Serum Folate 20 H Blood Type O POSITIVE O POSITIVE Antibody Screen Negative Current Medications Generic Name Dose Route Start Last Admin Trade Name Freq PRN Reason Stop Dose Admin Atenolol 25 mg 08/12/19 18:30 08/13/19 09:46 Tenormin - PO 25 mg DAILY EVELINA Administration Citalopram Hydrobromide 20 mg 08/12/19 18:30 08/13/19 09:46 Celexa - PO 20 mg DAILY EVELINA Administration Clotrimazole 1 applic 08/13/19 12:45 08/13/19 13:30 Lotrimin 1% Cream - TP 1 applic BID EVELINA Administration Diphenhydramine HCl 25 mg 08/12/19 05:22 Benadryl Injection - IVPUSH Q8H PRN FOR ITCHING Loratadine 10 mg 08/13/19 10:00 08/13/19 09:46 Claritin - PO 10 mg DAILY EVELINA Administration Lorazepam 0.5 mg 08/15/19 05:00 Ativan - PO 08/15/19 23:01 Q6H EVELINA Lorazepam 0.5 mg 08/15/19 00:00 Ativan - PO 08/16/19 00:00 Q4H PRN Symptoms of Withdrawal Lorazepam 0.5 mg 08/16/19 05:00 Ativan - PO 08/16/19 05:01 ONCE ONE Lorazepam 1 mg 08/14/19 05:00 Ativan - PO 08/14/19 23:01 0500,1100,1700,2300 EVELINA Lorazepam 1 mg 08/12/19 05:23 Ativan - PO 08/14/19 23:59 Q4H PRN Symptoms of Withdrawal Pantoprazole Sodium 40 mg 08/13/19 10:00 08/13/19 10:56 Protonix - PO 40 mg DAILY [facility] Administration Home Medications Medication Instructions Recorded Atenolol [Tenormin -] 25 mg PO DAILY 08/12/19 Citalopram Hydrobromide 20 mg PO DAILY 08/12/19 [Citalopram HBr] Loratadine [Claritin] 10 mg PO DAILY 08/12/19 Temazepam 30 mg PO DAILY 08/12/19 ASSESSMENT AND PLAN: 49 year old male with history of Depression/Anxiety, HTN, Liver Cirrhosis, Alcohol excess, Hepatitis C, Cholelithiasis presents with abdominal pain, without nausea/vomiting/diarrhea/melena/hematochezia. 1. Liver Cirrhosis secondary to Hepatitis + Alcohol Abuse LFTs elevated. MELD 13, Child Class B Abdominal US - cirrhosis, cholelithiasis, possible early cholecystitis. Afebrile, Hemodynamically stable, without leukocytosis. MRCP - Cirrhosis, distended GB with multiple small stones, ?early cholecystitis No clinical evidence of cholecystitis - no RUQ tenderness/nausea/vomiting/fever/ leukocytosis. GI consulted for further work-up including initiation of treatment for Hepatitis C and scheduling of screening EGD/Colonoscopy - EGD scheduled tentatively for 08/14 as per GI 2. Macrocytosis likely sec to Cirrhosis/Alcohol excess B12/Folate levels normal. 3. Thrombocytopenia - sec to Cirrhosis. No bruising/bleeding. 4. Rash LEs - possible Necrolytic Acral Erythema sec to Hep C infection ?fungal infection - for trial of clotrimazole. 5. Hx of alcohol abuse - will monitor for withdrawal. Ativan PRN. 6. Depression/Anxiety - continue Citalopram 7. HTN - continue Atenolol. DVT Px - SCDs. Heparin held due to Thrombocytopnia.
[2019-08-14 03:07] LABS: FIBROSIS SCORE. 0.98 (0.00-0.21); HCV ALPHA 2 MACRO CHART 401 mg/dL (110-276); NECRO.INFLAM ACT.SCORE 0.76 (0.00-0.17); NECROINFLAM. ACTIVITY GRADE A3-Severe activity (.)
[2019-08-14] MEDS: LORazepam 1 MG TABLET PO SCH ×3 (04:33→18:31)
[2019-08-14 07:45] LABS: INR 1.32 (0.83-1.09); PROTHROMBIN TIME (PATIENT) 15.6 SEC (9.7-13.0)
[2019-08-14 08:06] LABS: ALBUMIN 2.8 g/dl (3.4-5.0); BILIRUBIN,TOTAL 2.9 mg/dL (0.2-1); BLOOD UREA NITROGEN 13.5 mg/dL (7-18); CALCIUM 8.6 mg/dL (8.5-10.1); CREATININE 0.8 mg/dL (0.55-1.3); POTASSIUM 4.1 mmol/L (3.5-5.1); TOT PROT 6.2 g/dl (6.4-8.2)
[2019-08-14 08:24] LABS: BASO % 0.7 % (0-2.0); HEMATOCRIT 34.9 % (35.4-49); HEMOGLOBIN 12.1 GM/dL (11.7-16.9); LYMPH % 42.6 % (8-40); MCH 36.7 pg (25.7-33.7); MCHC 34.6 g/dl (32.0-35.9); MEAN CELL VOLUME 106.1 fl (80-96); MEAN PLT VOLUME 10.1 fl (7.5-11.1); MONO % 10.1 % (3.8-10.2); NEUT % 41.6 % (42.8-82.8); PLATELET COUNT 94 K/MM3 (134-434); RBC 3.29 M/mm3 (4.00-5.60); RDW 13.5 % (11.9-15.9); WHITE BLOOD COUNT 6.2 K/mm3 (4.0-10.0)
--- NOTE | 2019-08-14 12:33 | PN ---
Progress Note (short form) - Note Progress Note: EGD complete. Report left in procedural section of physical chart and will be scanned into [employer]. Problem List - Problems (1) Cirrhosis Code(s): K74.60 - UNSPECIFIED CIRRHOSIS OF LIVER Qualifiers: Hepatic cirrhosis type: unspecified hepatic cirrhosis Ascites presence: without ascites Qualified Code(s): K74.60 - Unspecified cirrhosis of liver
--- NOTE | 2019-08-14 12:51 | PN ---
Progress Note (short form) - Note Progress Note: Reviewed MRCP findings. Multiple gallstones w/ trace pericholecystic fluid. suspect findings of fluid secondary to portal hypertension and hypoalbuminemia. Asymptomatic on yesterday's and today's exam. Would be high risk for elective surgery given degree of liver dysfunction. If episodes of RUQ pain suggestive of biliary colic, would suggest evaluation at a tertiary care liver center. Needs complete alcohol cessation. Problem List - Problems (1) Cirrhosis Code(s): K74.60 - UNSPECIFIED CIRRHOSIS OF LIVER Qualifiers: Hepatic cirrhosis type: unspecified hepatic cirrhosis Ascites presence: without ascites Qualified Code(s): K74.60 - Unspecified cirrhosis of liver
[2019-08-14] MEDS: CITALOPRAM HYDROBROMIDE 20 MG TABLET (FP) PO SCH (14:02)
[2019-08-14] MEDS: LORATADINE 10 MG TABLET PO SCH (14:02)
[2019-08-14] MEDS: ATENOLOL 25 MG TABLET (FP) PO SCH (14:03)
[2019-08-14] MEDS: CLOTRIMAZOLE 1% CREAM 15 GM TUBE TP SCH (14:04)
[2019-08-14] MEDS: PANTOPRAZOLE 40 MG TABLET (FP) PO SCH (14:04)
--- NOTE | 2019-08-14 17:27 | DS ---
Physical Exam: SUBJECTIVE: 49 y/o male with PMH HTN and Hep C with cirrhosis, whom presented with RUQ and RLQ abdominal pain: 30 lbs weight loss/2-3 mo, pruritis + jaundice , and decreasing appetite. Abd pain on presentation was RIGHT sided abdominal pain, sudden in onset, dull in quality, constant in nature, non-radiating, assoc loose stools and 1x nbnb food-containing vomit, aggravated by bending down , and with no alleviating factors, and 5/10. Pt recently moved from [place] to the [facility]. Pt seen and examined at bedside. He denies abd pain this morning. He denies NVFD. Pt states last etoh was 3 beers 2 weeks ago and agrees to complete alcohol cessation. OBJECTIVE: Vital Signs Period Temp Pulse Resp BP Sys/Abernathy Pulse Ox Last 24 Hr 97.6 F-98.6 F 65-105 18-20 101-124/50-75 99-100 PHYSICAL EXAM GENERAL: AOx3, in no acute distress, Yakut speaking only HEAD: NCAT EYES: BETHEL, EOMI, conjunctiva clear. ENT: Ears normal, nares patent, oropharynx clear without exudates. Moist mucous membranes. NECK: Normal range of motion, supple without lymphadenopathy, JVD, or masses. LUNGS: CTAB. No wheezes, and no crackles. No accessory muscle use. HEART: RRR s1 s2 ABDOMEN: Hepatomegally. No splenomegally appreciated. Soft, nontender, BS present in all 4 quadrants, non-distended, no JVD, MUSCULOSKELETAL: No bony deformities or tenderness. No CVA tenderness. UPPER EXTREMITIES: 2+ pulses, warm, well-perfused. No cyanosis. No clubbing. No peripheral edema. LOWER EXTREMITIES: 2+ pulses, warm, well-perfused. No calf tenderness. No peripheral edema. NEUROLOGICAL: Cranial nerves II-XII intact. Normal speech. Gait not appreciated. PSYCHIATRIC: Cooperative. Good eye contact. Appropriate mood and affect. SKIN: Rash on LEs. Warm, dry, normal turgor, no lesions noted, normal capillary refill. LABS Laboratory Results - last 24 hr 08/12/19 08/14/19 08/14/19 14:12 05:30 05:30 WBC 6.2 RBC 3.29 L Hgb 12.1 Hct 34.9 L MCV 106.1 H MCH 36.7 H MCHC 34.6 RDW 13.5 Plt Count 94 L MPV 10.1 Absolute Neuts (auto) 2.6 Neutrophils % 41.6 L Lymphocytes % 42.6 H Monocytes % 10.1 Eosinophils % 5.0 H Basophils % 0.7 Nucleated RBC % 0 PT with INR 15.60 H INR 1.32 H Sodium Potassium Chloride Carbon Dioxide Anion Gap BUN Creatinine Est GFR (CKD-EPI)AfAm Est GFR (CKD-EPI)NonAf Random Glucose Calcium Total Bilirubin AST ALT Alkaline Phosphatase Liver GGT 128 H Liver Total Bilirubin 3.3 H Liver Fibrosis ALT 91 H Liver Haptoglobin < 10 L Liver Fibrosis Score 0.98 H Necroinflammator Score 0.76 H Necroinflam Pat Score Necroinflammator Grade A3-severe activity Total Protein Albumin Apolipoprotein A-1 104 Liver Fibrosis Comment Liver Fibrosis Limits Liver Fibrosis Interp 08/14/19 06:00 WBC RBC Hgb Hct MCV MCH MCHC RDW Plt Count MPV Absolute Neuts (auto) Neutrophils % Lymphocytes % Monocytes % Eosinophils % Basophils % Nucleated RBC % PT with INR INR Sodium 139 Potassium 4.1 Chloride 105 Carbon Dioxide 27 Anion Gap 7 L BUN 13.5 Creatinine 0.8 Est GFR (CKD-EPI)AfAm 120.72 Est GFR (CKD-EPI)NonAf 104.16 Random Glucose 83 Calcium 8.6 Total Bilirubin 2.9 H AST 117 H ALT 82 H Alkaline Phosphatase 116 Liver GGT Liver Total Bilirubin Liver Fibrosis ALT Liver Haptoglobin Liver Fibrosis Score Necroinflammator Score Necroinflam Pat Score Necroinflammator Grade Total Protein 6.2 L Albumin 2.8 L Apolipoprotein A-1 Liver Fibrosis Comment Liver Fibrosis Limits Liver Fibrosis Interp HOSPITAL COURSE: Date of Admission:08/11/19 49 y/o male with PMH HTN and Hep C with cirrhosis, whom presented with RUQ and RLQ abdominal pain. Pt sent to ED from Dr. Dr. Lena Sloan's office. PT's Hep C with liver cirrhosis demonstrated elevated AST to ALT ratio, high MCV which was believed to be significant etoh component. b12 folate levels adequate. MELD score 13, Child class B. GI consulted and recommended supportive measures, stating pain likely biliary colic and requested imaging. Multiple imaging performed. Abdominal US: Cirrhosis, cholelithiasis, poss early cholecystitis. EGD: 3 columns of varices, no active bleeding, 2cm hiatal hernia. MRCP: Multiple gallstones with trace pericholecystic fluid. suspect findings of fluid secondary to portal hypertension and hypoalbuminemia. Hep B serology taken but pending. Pt told to f/u as out-pt and if non-immune acquire immunization. Additionally pt advised to have Hep C treatment w f/u out pt and out-pt colonoscopy. Patient given appt with gastroenterology at [facility] with Dr. Salvador (08/25/19 10am). While in hospital pt was given Ibuprofen prn for pain, Benadryl for pruritis, ketoconazole for tinea pedis. A macrocytosis was observed and believed to be most likely 2/2 cirrhosis/etoh. B12 and Folate levels elevated. A thrombocytopenia was appreciated and poss 2/2 hep c and splenic sequestration. ECHO NEG. Pt also demonstrated BL LE Rash: interdigital and reported h/o relief w antifungal. Question of possible necrolytic acral erythema. (+) DM, anemia H/H low 11.4/33.1. Pt is former etoh abused but demonstrated no current symptoms of withdrawal. Pt reported h/o depression and home regimen continued. Pt has home med of temazepam 30 mg PO QD for insomnia but not provided in hospital and insomnia not complaint during this stay. Heparin was held 2/2 chronic illness and SCD with regular ambulation encouraged. Pt was educated on findings and provided tertirary/out pt care information. Date of Discharge: 08/14/19 Dario Howard MD Minutes to complete discharge: 40 Discharge Summary Reason For Visit: HEPATIC CIRRHOSIS Current Active Problems Abdominal pain (Acute) Cirrhosis (Acute) Elevated LFTs (Acute) Condition: Stable - Instructions Diet, Activity, Other Instructions: YOUR VISIT You came to the hospital because you were feeling abdominal pain and vomiting. You were admitted to the hospital for care of your medical condition. While here , you received fluids and pain medication. You were also seen by a wood calker. It is recommended you follow up on these concerns once you leave the hospital. You may now return home. MEDICATIONS Please continue to take your home medications as prescribed. ADDITIONAL CARE Please make an appointment to see a primary care provider 1 week from today. Since you do not currently have one, you can be seen at the [facility] residents clinic located at [facility] [place] [address]. Please call to make an appointment. If you would like to continue seeing Dr. Dario Howard, please ask for a Saturday morning appointment. You have an appointment with wood calker Dr. Salvador on 08/25/2019 at 10: 00AM at [address] [facility] [address] [facility], [address]. Phone number: [phone]. You will discuss further management if you experience continued abdominal pain. You had an endoscopy which revealed esophageal varices. You had hepatitis blood work drawn here in the hospital. Please be sure to follow up on the results at your follow up appointment. You may need a vaccine for hepatitis B. A referral to Dr. Alvarado has been provided. You will require a repeat endoscopy in one year. Follow up with your wood calker to discuss further. You are strongly advised: please do NOT drink any alcohol. This may worsen your medical conditions. DO NOT take any NSAID medications (aspirin, ibuprofen) ADDITIONAL INFORMATION Please call 911 or come directly to the emergency department if you experience unusual headache, vision change, shortness of breath, chest pain, numbness, tingling, loss of alertness/awareness, loss of function, unusual bleeding or any alarming symptoms. Referrals: Asa Salvador [Non Staff, Medical] - 08/25/19 10:00 am Carter Barragan MD [Staff Physician] - Yoana Alvarado MD [Staff Physician] - Disposition: HOME - Home Medications Comprehensive Discharge Medication List: Ambulatory Orders Atenolol [Tenormin -] 25 mg PO DAILY 08/12/19 Citalopram Hydrobromide [Citalopram HBr] 20 mg PO DAILY 08/12/19 Loratadine [Claritin] 10 mg PO DAILY 08/12/19 Temazepam 30 mg PO DAILY 08/12/19 This patient is new to me today: No Emergency Visit: No Critical Care patient: No - Discharge Referral Referred to [facility] No ATTENDING PHYSICIAN STATEMENT I saw and evaluated the patient. I reviewed the resident's note and discussed the case with the resident. I agree with the resident's findings and plan as documented. SUBJECTIVE: OBJECTIVE: ASSESSMENT AND PLAN:
[2019-08-14 18:16] VITALS: BP 123/69; PULSE 69; TEMP 98.3
--- NOTE | 2019-08-14 18:25 | PN ---
Teaching Attending Note Name of Resident: Dario Howard ATTENDING PHYSICIAN STATEMENT I saw and evaluated the patient. I reviewed the resident's note and discussed the case with the resident. I agree with the resident's findings and plan as documented. SUBJECTIVE: Complains of R sided abdominal pain. No nausea/vomiting. No hematemesis/melena/hematochezia. OBJECTIVE: Afebrile, Hemodynamically Stable. Last Vital Signs Temp Pulse Resp BP Pulse Ox 98.3 F 69 18 123/69 100 08/14/19 16:30 08/14/19 16:30 08/14/19 16:30 08/14/19 16:30 08/14/19 13:06 Heart - S1, S2, RRR Lungs - clear to auscultation Abdomen - Mild RUQ/RLQ tenderness, soft, bowel sounds normal. Extremities - no edema, no calf tenderness. scaly erythematous rash LEs/feet. Neuro - AAO x 3. Tone/Power normal all 4 extremities. Laboratory Results - last 24 hr 08/12/19 08/14/19 08/14/19 14:12 05:30 05:30 WBC 6.2 RBC 3.29 L Hgb 12.1 Hct 34.9 L MCV 106.1 H MCH 36.7 H MCHC 34.6 RDW 13.5 Plt Count 94 L MPV 10.1 Absolute Neuts (auto) 2.6 Neutrophils % 41.6 L Lymphocytes % 42.6 H Monocytes % 10.1 Eosinophils % 5.0 H Basophils % 0.7 Nucleated RBC % 0 PT with INR 15.60 H INR 1.32 H Sodium Potassium Chloride Carbon Dioxide Anion Gap BUN Creatinine Est GFR (CKD-EPI)AfAm Est GFR (CKD-EPI)NonAf Random Glucose Calcium Total Bilirubin AST ALT Alkaline Phosphatase Liver GGT 128 H Liver Total Bilirubin 3.3 H Liver Fibrosis ALT 91 H Liver Haptoglobin < 10 L Liver Fibrosis Score 0.98 H Necroinflammator Score 0.76 H Necroinflam Pat Score Necroinflammator Grade A3-severe activity Total Protein Albumin Apolipoprotein A-1 104 Liver Fibrosis Comment Liver Fibrosis Limits Liver Fibrosis Interp 08/14/19 06:00 WBC RBC Hgb Hct MCV MCH MCHC RDW Plt Count MPV Absolute Neuts (auto) Neutrophils % Lymphocytes % Monocytes % Eosinophils % Basophils % Nucleated RBC % PT with INR INR Sodium 139 Potassium 4.1 Chloride 105 Carbon Dioxide 27 Anion Gap 7 L BUN 13.5 Creatinine 0.8 Est GFR (CKD-EPI)AfAm 120.72 Est GFR (CKD-EPI)NonAf 104.16 Random Glucose 83 Calcium 8.6 Total Bilirubin 2.9 H AST 117 H ALT 82 H Alkaline Phosphatase 116 Liver GGT Liver Total Bilirubin Liver Fibrosis ALT Liver Haptoglobin Liver Fibrosis Score Necroinflammator Score Necroinflam Pat Score Necroinflammator Grade Total Protein 6.2 L Albumin 2.8 L Apolipoprotein A-1 Liver Fibrosis Comment Liver Fibrosis Limits Liver Fibrosis Interp Discharge Medications Medication Instructions Recorded Atenolol [Tenormin -] 25 mg PO DAILY 08/12/19 Citalopram Hydrobromide 20 mg PO DAILY 08/12/19 [Citalopram HBr] Loratadine [Claritin] 10 mg PO DAILY 08/12/19 Temazepam 30 mg PO DAILY 08/12/19 ASSESSMENT AND PLAN: 49 year old male with history of Depression/Anxiety, HTN, Liver Cirrhosis, Alcohol excess, Hepatitis C, Cholelithiasis presents with abdominal pain, without nausea/vomiting/diarrhea/melena/hematochezia. 1. Liver Cirrhosis secondary to Hepatitis C + Alcohol Abuse LFTs elevated. MELD 13, Child Class B Abdominal US - cirrhosis, cholelithiasis, possible early cholecystitis. Afebrile, Hemodynamically stable, without leukocytosis. MRCP - Cirrhosis, distended GB with multiple small stones No clinical evidence of cholecystitis - no nausea/vomiting/fever/leukocytosis. GI consulted for further work-up including initiation of treatment for Hepatitis C and for screening EGD/Colonoscopy s/p EGD 08/14 - three columns of varices, no active bleeding, 2cm hiatal hernia. For out-patient GI follow up for Hep C, screening colonoscopy, and follow up for Cirhosis/Portal gastropathy with varices. Patient also given appt with Gastroenterology at [facility] with Dr. Salvador (08/25/19 10am) as per GI recommendations. 2. Macrocytosis likely sec to Cirrhosis/Alcohol excess B12/Folate levels normal. 3. Thrombocytopenia - sec to Cirrhosis. No bruising/bleeding. 4. Rash LEs - possible Necrolytic Acral Erythema sec to Hep C infection - further evaluation and opinion by GI will be appreciated. ?fungal infection - for trial of clotrimazole. 5. Hx of alcohol abuse - No signs of alcohol withdrawal. 6. Depression/Anxiety - continue Citalopram 7. HTN - continue Atenolol. DVT Px - SCDs. Heparin held due to Thrombocytopnia. Medicaly Stable for discharge. No acute need for ongoing hospitalization. GI out -patient follow up.
[2019-08-15] MEDS ORDERED: LORazepam 0.5 MG TABLET PO PRN
[2019-08-15] MEDS ORDERED: LORazepam 0.5 MG TABLET PO SCH (05:00)
[2019-08-16] MEDS ORDERED: LORazepam 0.5 MG TABLET PO ONE (05:00)
[2019-08-18 17:07] LABS: HCV RNA GENOTYPE 4 (.)
[2019-08-30 07:51] LABS: HEP B CORE AB, TOT NEGATIVE
== END 2019-08-14 19:03 | disposition home or self-care (01) | DRG 280 ==
LOC: JER 14:59 → JERBED 18:01 → J8W 08-12 00:46
PROVIDERS: ADMIT Internal Medicine
PROC: 0DJ08ZZ Inspection of Upper Intestinal Tract, Via Natural or Artificial Opening Endoscopic (ICD-10-PCS; principal; 2019-08-14 13:45)
DX: K70.30 Alcoholic cirrhosis of liver without ascites (principal); B19.20 Unspecified viral hepatitis C without hepatic coma; N20.0 Calculus of kidney; R10.9 Unspecified abdominal pain; D75.89 Other specified diseases of blood and blood-forming organs; F41.8 Other specified anxiety disorders; F10.239 Alcohol dependence with withdrawal, unspecified; I10 Essential (primary) hypertension; E88.09 Other disorders of plasma-protein metabolism, not elsewhere classified; L53.9 Erythematous condition, unspecified; I85.00 Esophageal varices without bleeding; D69.6 Thrombocytopenia, unspecified; E86.0 Dehydration; K44.9 Diaphragmatic hernia without obstruction or gangrene
CPT/HCPCS: 36415; 71046-TC-FY; 74181-TC; 76705-TC; 80053; 81003; 82140; 82172; 82550; 82607; 82746; 82943; 82977; 83010; 83690; 83735; 83883; 84100; 84460; 84484; 85025; 85610; 85730; 86704; 86705; 86706; 86707; 86850; 86900; 86901; 87522; 87902; 90732; 93005; 93010; 93306-TC; 97116-GP; 97161-GP; 99283-25; G0009; J1644